=== PATIENT | female | born 1995 | race Caucasian/White ===

== ENCOUNTER 2022-07-20 09:00 | Outpatient (CLI) | payer BC, SELFPAY ==
--- NOTE | ~2022-07-20 | CT_ITS ---
EXAMINATION: CT soft tissue neck w con DATE: 07/20/2022 09:38 INDICATION: Localized swelling, mass and lump, neck. TECHNIQUE: Computed tomography (CT) of the neck was performed with 75 mL Omnipaque-350 intravenous co ntrast. Automated exposure control and iterative reconstruction technique were employed. The dose-anthony gth product was 447.93 mGy-cm. COMPARISON: None FINDINGS: There are 13 x 12 mm and 10 x 11 mm right spinal accessory chain lymph nodes. The cervical carotid arteries are normal. There is a mucous retention cyst in right maxillary sinus. The mastoid a ir cells are normal. There is a 4 mm lytic lesion in C5 vertebral body. There is a 4 mm lytic lesion in the C6 vertebral body. IMPRESSION: 1. Mildly enlarged right spinal accessory chain lymph nodes, which may be reactive. Metastatic diseas e or lymphoma cannot excluded. If this finding is persistent, consider ultrasound-guided core needle biopsy. 2. Small lytic lesions in the C5 and C6 vertebral bodies, most likely hemangiomas. In the patient had known malignancy, metastatic disease could not be excluded. Reviewed, dictated and finalized at location A. IMPRESSION: 1. Mildly enlarged right spinal accessory chain lymph nodes, which may be react claus. Metastatic disease or lymphoma cannot excluded. If this finding is persist ent, consider ultrasound-guided core needle biopsy. 2. Small lytic lesions in the C5 and C6 vertebral bodies, most likely hemangiom as. In the patient had known malignancy, metastatic disease could not be exclud ed.
[2022-07-20 09:31] LABS: Estimated Glomerular Filt Rate > 60
== END 2022-07-20 09:01 | disposition home or self-care (01) ==
LOC: ANHIMG 09:04
PROVIDERS: PCP Family Medicine; Visit Provider Physician Assistant
DX: R22.1 Localized swelling, mass and lump, neck (principal)
CPT/HCPCS: 70491; Q9967

== ENCOUNTER 2022-07-30 09:53 | Outpatient (CLI) | payer BC, SELFPAY ==
--- NOTE | ~2022-07-30 | US_ITS ---
EXAMINATION: US biopsy lymph node DATE: 07/30/2022 11:18 INDICATION: Localized swelling, mass and lump at the neck. Enlarged cervical lymph nodes on CT. TECHNIQUE: The procedure including the risks and benefits was discussed with the patient. Risks discu ssed included bleeding and infection. The patient understood the risks and agreed to proceed. The sk in overlying the right side of the neck was prepped and draped in usual sterile fashion. Anesthetic was administered with 1% lidocaine subcutaneously. An 18 gauge core biopsy needle was advanced under continuous ultrasound observation to the largest lymph node at the right posterior cervical triangle . 2 core biopsy specimens were obtained and placed in formalin. An additional 3 core biopsy specimen s were obtained with a 14-gauge core needle biopsy under continuous ultrasound observation and placed in RPMI media. The needle was removed and the entry site was cleaned and dressed. Post procedure u ltrasound demonstrated no hemorrhage. FINDINGS: Ultrasound images demonstrate a 1.7 x 0.8 cm lymph node at the right posterior cervical tri angle. Subsequent images demonstrate the biopsy needle advanced into the lymph node. IMPRESSION: 1. Successful Ultrasound-guided biopsy of a 1.7 x 0.8 cm lymph node at the right posterior cervical t riangle. Reviewed, dictated and finalized at location A. IMPRESSION: 1. Successful Ultrasound-guided biopsy of a 1.7 x 0.8 cm lymph node at the [facility] t posterior cervical triangle.
== END 2022-07-30 09:54 | disposition home or self-care (01) ==
PROVIDERS: PCP Family Medicine; Visit Provider Physician Assistant
DX: R22.1 Localized swelling, mass and lump, neck (principal)
CPT/HCPCS: 38505; 76942; 88184; 88305

== ENCOUNTER 2024-12-21 13:34 | Outpatient (CLI) | payer OTHER, SELFPAY ==
--- OUTSIDE RECORDS SUMMARY | 2024-12-21 13:37 | XMS_ITS | Clinical Summary ---
Author Organization 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 Name Role Phone Unavailable Primary Care Provider Unavailabl e Social History Tobacco Use Types Packs/Day Years Used Date Smoking Tobacco: Never Assessed Comments Unknown Sex and Gender Information Value Date Recorded Sex Assigned at Not on file Legal Sex Female 10:14 AM [employer]ENT[employer] Gender Identity Not on file Sexual Orientation Not on file Plan of Treatment Health Maintenance Due Date Last Done Comments Hepatitis C Virus (HCV) Screening 1993 TdaP Immunization 1993 Hepatitis B Immunization (1 of 3 - 19+ 3-dose series) 2012 Pap Smear 2014 Cervical Cancer Screening (CCS) 2023 HPV/Cotest 2023 Influenza Immunization (#1) 2024 SARS-COV-2 Immunization ( season) 2024 Respiratory Syncytial Virus (RSV) Immunization (Adult) (1 - 1-dose 75+ series) 2068 Meningococcal Immunization (ACWY) Aged Out No longer eligible based on patient's age to complete this topic Pneumococcal Immunization Combined Aged Out No longer eligible based on patient's age to complete this topic Rotavirus Immunization Aged Out No lo nger eligible based on patient's age to complete this topic
[2024-12-21 14:00] LABS: Hematocrit 40.6 % (37.0-47.0); Hemoglobin 13.5 g/dL (12.0-15.0); Mean Corpuscular HGB Conc 33.3 g/dl (32-36); Mean Corpuscular Hemoglobin 28.7 pg (26-34); Mean Corpuscular Volume 86.2 fl (80-100); Mean Platelet Volume 9.6 fl (7.4-10.4); Platelet Count Result 328 k/mm3 (150-375); Red Blood Count 4.71 M/mm3 (4.2-5.4); Red Cell Distribution Width 13.4 % (11.5-14.5)
[2024-12-21 14:04] LABS: Hemoglobin A1C 5.6 % (<5.7)
[2024-12-21 14:13] LABS: Complement C3 139 mg/dL (88-165)
[2024-12-21 14:17] LABS: Alanine Aminotransferase 19 U/L (6-35); Albumin Level 4.8 g/dL (3.5-5.1); Alkaline Phosphatase 84 U/L (38-126); Anion Gap 14 mmol/L (4-12); Aspartate Amino Transferase 35 U/L (14-36); Bilirubin,Total 0.6 mg/dL (0.2-1.3); Blood Urea Nitrogen 19 mg/dL (7-17); Calcium 10.3 mg/dL (8.4-10.2); Carbon Dioxide 25 mmol/L (22-30); Chloride 102 mmol/L (98-107); Cholesterol 275 mg/dL (0-200); Estimated Glomerular Filt Rate > 60; Glucose 93 mg/dL (65-110); HDL Direct 34 mg/dL; Potassium 3.8 mmol/L (3.4-5.0); Sodium 141 mmol/L (137-145); Triglycerides 116 mg/dL (<150)
[2024-12-21 14:28] LABS: LDL Cholesterol Direct 170 mg/dL
[2024-12-25 14:47] LABS: ANCA Screen NEGATIVE (NEGATIVE)
== END 2024-12-21 13:35 | disposition home or self-care (01) ==
LOC: ANHLAB 13:35
PROVIDERS: PCP Family Medicine
DX: Z13.1 Encounter for screening for diabetes mellitus (principal); I10 Essential (primary) hypertension; N05.9 Unspecified nephritic syndrome with unspecified morphologic changes; Z13.220 Encounter for screening for lipoid disorders
CPT/HCPCS: 36415; 80053; 80061; 83036; 85027; 86036; 86038; 86039; 86160; 86225